=== PATIENT | female | born 1960 | race Caucasian/White ===

== ENCOUNTER 2019-03-23 11:36 | Emergency (ER) | payer OTHER ==
[~2019-03-23] VITALS: Ht 180.3 cm; Wt 112.9 kg
[2019-03-23 11:39] VITALS: BP 117/70
--- NOTE | 2019-03-23 11:44 | NUR ---
PT TAKEN TO BED 3.
--- NOTE | 2019-03-23 11:53 | NUR ---
58F C/O INTERMITTENT B/L LOWER ABD/PELVIC PAIN X 1 WEEK. PAIN DESCRIBED ACHY, STABBING, EACH EPISODE LASTS A FEW MINUTES. PT TOOK IBUPROFEN EARLIER TODAY AND REPORTS PAIN TO BE "NOT SO BAD" 5/10 AT THIS TIME. DENIES N/V, VAGINAL/URETHRAL DISCHARGE, DYSURIA, BACK PAIN. STATES SUBJECTIVE FEVER A FEW NIGHTS AGO, LOW ENERGY, FREQUENCY AT NIGHT. NAD. NORMOACTIVE BOWEL SOUNDS. NON-TENDER. HX- NONE
--- NOTE | 2019-03-23 12:16 | NUR ---
Dr. Schaeffer evaluating patient at bedside.
--- NOTE | 2019-03-23 12:43 | NUR ---
BLOOD DRAW AND URINE WALKED TO LAB.
[2019-03-23 12:51] LABS: BASOPHILS % (AUTO) 0.4 % (0.0-2.0); EOSINOPHILS # (AUTO) 0.1 K/uL (0-0.4); EOSINOPHILS % (AUTO) 1.4 % (0.0-4.0); HEMATOCRIT 41.9 % (36-48); HEMOGLOBIN 13.8 g/dL (12.0-16.0); MEAN CORPUSCULAR HEMOGLOBIN 31 pg (27-31); MEAN CORPUSCULAR HGB CONC 33 g/dL (33-37); MEAN CORPUSCULAR VOLUME 93.2 fL (80-94); MONOCYTES # (AUTO) 0.9 K/uL (0.8-1.0); MONOCYTES % (AUTO) 10.8 % (1.7-9.3); NEUTROPHILS # (AUTO) 5.9 K/uL (1.8-7.7); NEUTROPHILS % (AUTO) 74.4 % (42.2-75.2); PLATELET COUNT (AUTO) 286 K/uL (140-450); RED BLOOD CELL COUNT(AUTO) 4.49 MIL/uL (4.20-5.40); WHITE BLOOD COUNT (AUTO) 7.9 K/uL (4.8-10.8)
[2019-03-23 12:53] LABS: APPEARANCE,URINE CLEAR (CLEAR); BILIRUBIN,URINE NEGATIVE (NEGATIVE); BLOOD, URINE TRACE-L (NEGATIVE); COLOR,URINE YELLOW (YELLOW); LEUKOCYTE ESTERASE ,URINE NEGATIVE (NEGATIVE); NITRITE, URINE NEGATIVE (NEGATIVE); PH,URINE 5.5 (5.0-9.0); UGLUCOSE NEGATIVE (NEGATIVE)
[2019-03-23 13:06] LABS: RBC,URINE 0-5 /HPF (0-5); WBC,URINE 0-5 /HPF (0-5)
[2019-03-23 13:15] LABS: ANION GAP 14.5 (8-16); CARBON DIOXIDE 24.3 mmol/L (21-32); CREATININE 0.6 mg/dL (0.6-1.3); POTASSIUM 3.8 mmol/L (3.5-5.1)
[2019-03-23 13:21] LABS: TOTAL BILIRUBIN 0.4 mg/dL (0.0-1.0)
--- NOTE | 2019-03-23 13:48 | NUR ---
TECH HERE TO TAKE PATIENT FOR CT.
[2019-03-23] MEDS ORDERED: PIPERACILLIN/TAZOBACTAM 3.375 GM in DEXTROSE 5% 50 ML IV ONE (15:15)
[2019-03-23] MEDS ORDERED: PIPERACILLIN/TAZOBACTAM 3.375 GM VIAL IV ONE (15:22)
[2019-03-23 15:57] VITALS: BP 134/68
--- NOTE | 2019-03-23 15:57 | NUR ---
Patient discharged with v/s stable. Written and verbal after care instructions given and explained. Patient alert, oriented and verbalized understanding of instructions. Ambulatory with steady gait. All questions addressed prior to discharge. ID band removed. Patient advised to follow up with PMD. Rx of ZOFRAN, NORCO, AUGMENTIN given. Patient educated on indication of medication including possible reaction and side effects. Opportunity to ask questions provided and answered.
== END 2019-03-23 15:57 | disposition home or self-care (01) ==
LOC: MED 11:36
DX: K57.92 Diverticulitis of intestine, part unspecified, without perforation or abscess without bleeding (principal); Z98.890 Other specified postprocedural states
CPT/HCPCS: 36415; 74177; 80053; 81001; 83690; 84703; 85025; 96365; 99284; J2543; Q9967